=== PATIENT | male | born 2000 | race Hispanic/Latino ===

== ENCOUNTER 2021-05-29 16:10 | Inpatient (IN) | payer SELFPAY ==
[2021-05-29] MEDS ORDERED: Acetaminophen 325 MG TAB ONE (17:08)
[2021-05-29 17:13] LABS: #Lymphocytes 1.4 thou/uL (1.20-3.40); #Monocytes 0.6 thou/uL (0.11-0.59); #Neutrophils 4.2 thou/uL (1.40-6.50); %Basophils 0.1 % (0.0-1.0); %Eosinophils 0.1 % (0.0-10.0); %Lymphocytes 22.3 % (21.0-51.0); %Monocytes 9.2 % (0.0-10.0); %Neutrophils 68.3 % (42.0-75.0); Hemoglobin 15.6 g/dL (14.0-18.0); Mean Corpuscular Hemoglobin 31.7 pg (27.0-31.0); Mean Corpuscular Volume 93.2 fL (78.0-98.0); Mean Platelet Volume 7.8 fL (7.4-10.4); Platelet Count 156 thou/uL (130-400); RBC Distribution Width 11.5 % (11.5-14.5); Red Blood Cell (RBC) Count 4.92 mill/uL (4.70-6.10); White Blood Cell (WBC) Count 6.1 thou/uL (4.8-10.8)
[2021-05-29 17:29] LABS: ALT (SGPT) 37 U/L (8-55); AST (SGOT) 36 U/L (5-34); Albumin 4.3 g/dL (3.5-5.0); Alkaline Phosphatase 57 U/L (40-110); Anion Gap 11 mmol/L (10-20); BUN (Urea Nitrogen) 15 mg/dL (8.9-20.6); Bilirubin, Total 0.6 mg/dL (0.2-1.2); Calc. Creatinine Clearance 0 mL/min (70-130); Calcium 9.2 mg/dL (7.8-10.44); Carbon Dioxide 25 mmol/L (22-29); Chloride 103 mmol/L (98-107); Globulin 3.2 g/dL (2.4-3.5); Glucose 209 mg/dL (70-105); Protein, Total 7.5 g/dL (6.0-8.3); Sodium 135 mmol/L (136-145)
[2021-05-29] MEDS ORDERED: Piperacillin/Tazobactam 4.5 GM VIAL ONE (17:29)
[2021-05-29] MEDS ORDERED: Morphine 4 MG/ML VIAL ONE (17:29)
[2021-05-29 18:44] LABS: Bilirubin Negative (Negative); Blood, Urine Negative (Negative); Clarity Clear (Clear); Glucose, Urine (Dipstick) Normal (Negative); Ketone, Urine 10 mg/dL (Negative); Leukocyte Negative Leu/uL (Negative); Nitrite Negative (Negative); Protein, Urine (Dipstick) Negative (Neg-Trace); Specific Gravity, Urine 1.034 (1.002-1.036); Urobilinogen Normal mg/dL (Less than 2); pH, Urine 6.5 (5.0-9.0)
[2021-05-29] MEDS ORDERED: cefTRIAXone\\ROCEPHIN 500 MG VIAL ONE (19:49)
[2021-05-29] MEDS ORDERED: Doxycycline 100 MG CAP PO SCH (20:15)
[2021-05-29] MEDS ORDERED: Acetaminophen 650 MG Suppository PR PRN (21:40)
[2021-05-29] MEDS ORDERED: Ondansetron ODT 4 MG TAB PO PRN (21:40)
[2021-05-29] MEDS ORDERED: Ondansetron PF 4 MG/2 ML Vial IVP PRN (21:40)
[2021-05-29] MEDS ORDERED: Doxycycline 100 MG in Sodium Chloride 0.9% 100 ML IVPB SCH (22:00)
[2021-05-29 23:33] VITALS: BMI 23.4
[2021-05-29] MEDS ORDERED: SODIUM CHLORIDE 0.9% IVPB SCH ×2 (23:59)
[2021-05-29] MEDS ORDERED: PIPERACILLIN IVPB SCH ×2 (23:59)
[2021-05-29] MEDS ORDERED: TAZOBACTAM IVPB SCH ×2 (23:59)
[2021-05-30] MEDS: Sodium Chloride 0.9% 1,000 ML IV SCH ×4 (00:08→22:53)
[2021-05-30] MEDS: Acetaminophen 325 MG TAB PO PRN ×3 (00:11→17:32)
[2021-05-30] MEDS: Doxycycline 100 MG in Sodium Chloride 0.9% 100 ML IVPB SCH ×2 (01:41→12:43)
[2021-05-30 06:45] LABS: #Lymphocytes 1.4 thou/uL (1.20-3.40); #Monocytes 0.8 thou/uL (0.11-0.59); #Neutrophils 3.8 thou/uL (1.40-6.50); %Basophils 0.3 % (0.0-1.0); %Eosinophils 0.5 % (0.0-10.0); %Lymphocytes 22.6 % (21.0-51.0); %Monocytes 13.6 % (0.0-10.0); %Neutrophils 63.1 % (42.0-75.0); Hemoglobin 14.8 g/dL (14.0-18.0); Mean Corpuscular HGB CONC 32.9 g/dL (32.0-36.0); Mean Corpuscular Hemoglobin 30.9 pg (27.0-31.0); Mean Platelet Volume 7.9 fL (7.4-10.4); Platelet Count 137 thou/uL (130-400); RBC Distribution Width 11.4 % (11.5-14.5); Red Blood Cell (RBC) Count 4.78 mill/uL (4.70-6.10)
[2021-05-30 07:03] LABS: Anion Gap 9 mmol/L (10-20); BUN (Urea Nitrogen) 9 mg/dL (8.9-20.6); Calc. Creatinine Clearance 87 mL/min (70-130); Calcium 8.2 mg/dL (7.8-10.44); Carbon Dioxide 24 mmol/L (22-29); Chloride 106 mmol/L (98-107); Glucose 97 mg/dL (70-105); Sodium 135 mmol/L (136-145)
[2021-05-30] MEDS: Enoxaparin Sodium 40 MG/0.4 ML SYRINGE SC SCH (08:28)
[2021-05-30] MEDS: Piperacillin/Tazobactam 3.375 GM in Sodium Chloride 0.9% 100 ML IVPB SCH ×3 (08:29→22:53)
[2021-05-30 11:04] LABS: Syphilis Antibody Nonreactive (Nonreactive); Syphilis Antibody Index 0.05 S/CO (<1.00 Non-Reactive)
[2021-05-30 12:58] LABS: SARS-CoV-2 PCR by NAA Not Detected (NotDetected)
[2021-05-30] MEDS ORDERED: cefTRIAXone\\ROCEPHIN 2 GM in Sodium Chloride 0.9% 100 ML IVPB SCH (15:00)
[2021-05-31] MEDS: Doxycycline 100 MG in Sodium Chloride 0.9% 100 ML IVPB SCH ×2 (00:59→13:14)
[2021-05-31] MEDS: Acetaminophen 325 MG TAB PO PRN ×3 (01:03→22:40)
[2021-05-31] MEDS: Piperacillin/Tazobactam 3.375 GM in Sodium Chloride 0.9% 100 ML IVPB SCH ×3 (08:55→22:36)
[2021-05-31] MEDS: Enoxaparin Sodium 40 MG/0.4 ML SYRINGE SC SCH (08:55)
[2021-05-31] MEDS ORDERED: FLU VACC QS2021-22(6MOS UP)/PF 60 MCG/0.5 ML SYRINGE IM ONE (09:00)
[2021-05-31] MEDS: Sodium Chloride 0.9% 1,000 ML IV SCH ×2 (11:19→15:42)
[2021-05-31] MEDS ORDERED: GoLYTELY 4,000 ml Bottle PO SCH (18:00)
[2021-06-01] MEDS: Sodium Chloride 0.9% 1,000 ML IV SCH ×2 (00:21→06:32)
[2021-06-01] MEDS: Doxycycline 100 MG in Sodium Chloride 0.9% 100 ML IVPB SCH ×2 (00:28→14:47)
[2021-06-01 08:18] VITALS: BP 113/70; TEMP 98.7
[2021-06-01] MEDS: Enoxaparin Sodium 40 MG/0.4 ML SYRINGE SC SCH (08:19)
[2021-06-01] MEDS: Piperacillin/Tazobactam 3.375 GM in Sodium Chloride 0.9% 100 ML IVPB SCH (08:21)
[2021-06-01] MEDS ORDERED: Midazolam HCl 2 mg/2 ml Vial ONE (09:36)
[2021-06-01] MEDS ORDERED: Promethazine HCl 25 MG/ML VIAL IM PRN (12:00)
[2021-06-01] MEDS ORDERED: Promethazine HCl 25 MG/ML VIAL IVPB PRN (12:00)
[2021-06-01] MEDS ORDERED: Ondansetron HCl/PF 4 MG/2 ML Vial IVP PRN (12:00)
== END 2021-06-01 15:53 | disposition home or self-care (01) | DRG 872 ==
LOC: ERS 16:10 → T4-A 19:41
PROVIDERS: ADMIT Student in an Organized Health Care Education/Training Program; ATTEND Internal Medicine
PROC: 3E03329 Introduction of Other Anti-infective into Peripheral Vein, Percutaneous Approach (ICD-10-PCS; 2021-05-29)
PROC: 0DBP8ZX Excision of Rectum, Via Natural or Artificial Opening Endoscopic, Diagnostic (ICD-10-PCS; principal; 2021-06-01)
DX: A41.9 Sepsis, unspecified organism (principal); N17.9 Acute kidney failure, unspecified; K62.5 Hemorrhage of anus and rectum; K51.20 Ulcerative (chronic) proctitis without complications; Z20.822 Contact with and (suspected) exposure to COVID-19; F17.210 Nicotine dependence, cigarettes, uncomplicated
CPT/HCPCS: 36415; 74177; 80048; 80053; 81003; 83605; 85025; 86780; 87040; 87491; 87591; 88305; 94760; 96365; 96375; J0696; J1650; J2250; J2270; J2543; J3490; J7050; U0003; U0005